=== PATIENT | female | born 1990 | race Caucasian/White ===

== ENCOUNTER 2016-10-30 22:28 | Emergency (ER) | payer MEDICAID ==
[~2016-10-30] VITALS: Ht 154.9 cm; Wt 59.0 kg
[~2016-10-30 22:28] MED LIST: CALCIUM 500500 MG PO; IRON325 M1 PO; PRENATAL1 TA1 PO
[2016-10-30 22:40] VITALS: BP 158/82
--- NOTE | 2016-10-31 | NUR ---
Mitchell pyle in [facility] - 10/31/16 at 0015 by [email or web address] PATIENT BEING EVALUATED BY DR. WOODY.
--- NOTE | 2016-10-31 00:04 | NUR ---
PATIENT AMBULATED TO ER BED 5.
--- NOTE | 2016-10-31 00:10 | NUR ---
PATIENT PRESENTS TO ED WITH C/O LT. EYE PAIN AND REDNESS SINCE 1600, UNABLE TO OPEN AT THIS TIME. NO MEDICAL HX.PT DENIES N/V/D; SKIN IS PINK/WARM/DRY; AAOX4 WITH EVEN AND STEADY GAIT; LUNGS CLEAR BL; HR EVEN AND REGULAR; PT DENIES ANY FEVER, CP, SOB, OR COUGH AT THIS TIME; PATIENT STATES PAIN OF 10/10 AT THIS TIME; VSS; PATIENT POSITIONED FOR COMFORT; HOB ELEVATED; BEDRAILS UP X2; BED DOWN. ER MD MADE AWARE OF PT STATUS.
--- NOTE | 2016-10-31 00:10 | NUR ---
PATIENT BEING EVALUATED BY DR. WOODY.
[2016-10-31 00:59] VITALS: BP 158/82
--- NOTE | 2016-10-31 00:59 | NUR ---
Patient discharged with v/s stable. Written and verbal after care instructions given and explained. Patient alert, oriented and verbalized understanding of instructions. Ambulatory with steady gait. All questions addressed prior to discharge. ID band removed. Patient advised to follow up with PMD. Rx of CIPRO HYDROCHLORIDE OPTH KANDACE DROPS given. Patient educated on indication of medication including possible reaction and side effects. Opportunity to ask questions provided and answered.
== END 2016-10-31 00:59 | disposition home or self-care (01) ==
LOC: MED 22:28
DX: H10.89 Other conjunctivitis (principal)